=== PATIENT | male | born 1960 | race Caucasian/White ===

== ENCOUNTER 2017-05-16 07:48 | Emergency (ER) | payer OTHER ==
[~2017-05-16] VITALS: Ht 175.3 cm; Wt 92.0 kg
[~2017-05-16 07:48] MED LIST: BACT2OIN TOP; CODE15 PO; DOXY100T17 OR; MONT10TA2 PO; PRIL20TA2 PO; SULF1TAB47 PO; TAB-TAB PO; ZOFR4TAB3 SL
[2017-05-16 07:49] VITALS: BP 149/82; PULSE 95; RESP 20; TEMP 98.2; O2SAT 97
[2017-05-16] MEDS ORDERED: PRIL20TA2 PO (08:08)
[2017-05-16] MEDS ORDERED: ASPI81TA19 PO (08:08)
[2017-05-16] MEDS ORDERED: LISI-519 PO (08:08)
[2017-05-16 08:15] VITALS: RESP 16; O2SAT 98
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
[2017-05-16 08:30] VITALS: BP 163/80; PULSE 106; RESP 16; O2SAT 97
[2017-05-16] MEDS ORDERED: RESP: ALBUTEROL 2.5 MG/IPRATROPIUM 0.5 MG NEB (SCH) INH ONE (08:30)
--- NOTE | 2017-05-16 09:11 | RADHPO ---
EXAM DATE/TIME: 05/16/2017 08:31 [facility] COMPARISON: No previous studies available for comparison. INDICATIONS : Short of breath & cough. MEDICAL HISTORY : Gastroesophageal reflux disease. Hypertension Asthma. SURGICAL HISTORY : Tonsillectomy. ENCOUNTER: Initial ACUITY: 2 days PAIN SCORE: 0/10 LOCATION: chest FINDINGS: A single view of the chest demonstrates the lungs to be symmetrically aerated without evidence of mas s, infiltrate or effusion. Minimal scar versus atelectasis is seen in the left base. The cardiomedia stinal contours are unremarkable. Osseous structures are intact. CONCLUSION: Minimal scar versus atelectasis left base otherwise no evidence of acute process. Ace Delaney MD on May 16, 2017 at 9:08 Board Certified Radiologist. This report was verified electronically.
[2017-05-16 09:15] LABS: CHLORIDE 110 MEQ/L (98-107); POTASSIUM 4.1 MEQ/L (3.5-5.1); SODIUM (NA) 144 MEQ/L (136-145)
[2017-05-16 09:19] LABS: APTT (PATIENT) 26.1 SEC (24.3-30.1); AUTOMATED NEUTROPHIL # 3.9 TH/MM3 (1.8-7.7); BASOPHIL % 0.2 % (0.0-2.0); EOSINOPHIL # 0.1 TH/MM3 (0-0.4); EOSINOPHIL % 0.9 % (0.0-4.0); HEMATOCRIT 44.6 % (39.0-51.0); HEMO FLAGS DIFF FINAL; LYMPH % 27.3 % (9.0-44.0); LYMPHOCYTE # 1.6 TH/MM3 (1.0-4.8); MEAN CELL VOLUME 95.9 FL (80.0-100.0); MEAN CORPUSCULAR HEMOGLOBIN 32.8 PG (27.0-34.0); MEAN CORPUSCULAR HGB CONC 34.2 % (32.0-36.0); MONO % 7.5 % (0.0-8.0); NEUT % 64.1 % (16.0-70.0); PLATELET COUNT 118 TH/MM3 (150-450); PROTHROMBIN TIME - PATIENT 11.2 SEC (9.8-11.6); RED BLOOD COUNT 4.65 MIL/MM3 (4.50-5.90); RED CELL DISTRIBUTION WIDTH 12.5 % (11.6-17.2)
[2017-05-16 09:21] LABS: GLOMERULAR FILTRATION RATE 78 ML/MIN (>89)
[2017-05-16] MEDS ORDERED: PRED20 PO (09:24)
[2017-05-16] MEDS ORDERED: ZITHTAB PO (09:24)
[2017-05-16 09:30] VITALS: BP 125/83; PULSE 107; RESP 16; O2SAT 99
[2017-05-16 09:51] LABS: CREATINE KINASE 60 U/L (39-308)
[2017-05-16 09:52] LABS: ANION GAP 10 MEQ/L (5-15); BICARBONATE 23.6 MEQ/L (21.0-32.0)
[2017-05-16 10:03] LABS: BLOOD UREA NITROGEN 14 MG/DL (7-18)
[2017-05-16 10:13] VITALS: BP 128/81
--- NOTE | 2017-05-16 15:00 | EKG ---
Date Performed: 05/16/2017 Time Performed: 08:35:31 PTAGE: 56 years EKG: Sinus rhythm MODERATE T-WAVE ABNORMALITY, CONSIDER LATERAL ISCHEMIA ABNORMAL ECG NO PREVIOUS TRACING DOCTOR: Sukhwinder Gallegos Interpretating Date/Time 05/16/2017 14:56:55
== END 2017-05-16 10:15 | disposition home or self-care (01) ==
LOC: PHED 07:48
DX: J45.21 Mild intermittent asthma with (acute) exacerbation (principal); R07.9 Chest pain, unspecified; I10 Essential (primary) hypertension
CPT/HCPCS: 71010; 80048; 82550; 84484; 85025; 85610; 85730; 93005; 94664